=== PATIENT | female | born 1985 | race Hispanic/Latino ===

== ENCOUNTER 2022-05-04 10:11 | Outpatient (CLI) | payer OTHER | END 2022-05-04 10:12 | disposition home or self-care (01) | LOC: BICRAD 10:11 | PROVIDERS: ATTEND Family Medicine | DX: R76.12 Nonspecific reaction to cell mediated immunity measurement of gamma interferon antigen response without active tuberculosis (principal); R91.1 Solitary pulmonary nodule | CPT/HCPCS: 71045 ==